=== PATIENT | female | born 1965 | race Caucasian/White ===

== ENCOUNTER 2018-12-28 09:28 | Outpatient (CLI) | payer OTHER ==
--- NOTE | 2018-12-28 11:34 | MMO ---
Bilateral MAMMO Bilat Screen DDI. CLINICAL HISTORY: Patient is 53 years old and is seen for screening. The patient has no family history of breast cancer. The patient has no personal history of cancer. The patient has a history of left needle biopsy in 2004 - benign. VIEWS: The views performed were: bilateral craniocaudal and bilateral mediolateral oblique. FILMS COMPARED: The present examination has been compared to prior imaging studies performed at [facility] on 12/11/2016, and at [facility] on 11/27/2014 and 09/30/2015. This study has been interpreted with the assistance of computer-aided detection. MAMMOGRAM FINDINGS: The breasts are heterogeneously dense, which could obscure a lesion on mammography. There are no suspicious masses, suspicious calcifications, or new areas of architectural distortion. IMPRESSION: THERE IS NO MAMMOGRAPHIC EVIDENCE OF MALIGNANCY. A ROUTINE FOLLOW-UP MAMMOGRAM IN 1 YEAR IS RECOMMENDED. ACR BI-RADS Category 1 - Negative MAMMOGRAPHY NOTE: 1. A negative mammogram report should not delay a biopsy if a dominant of clinically suspicious mass is present. 2. Approximately 10% to 15% of breast cancers are not detected by mammography. 3. Adenosis and dense breasts may obscure an underlying neoplasm. Reported by: JOSE J MURILLO MD Electonically Signed: [id number]
== END 2018-12-28 09:29 | disposition home or self-care (01) ==
LOC: SCSMAMMO 09:28
PROVIDERS: ATTEND Family Medicine
DX: Z12.31 Encounter for screening mammogram for malignant neoplasm of breast (principal)
CPT/HCPCS: 77067

== ENCOUNTER 2019-05-30 07:02 | Day surgery (SDC) | payer OTHER ==
--- NOTE | 2019-05-30 09:39 | OP ---
DATE OF PROCEDURE: 05/30/2019 ASSISTANT HOUSEKEEPING MANAGER SURGEON: None. PROCEDURES PERFORMED: 1. Esophagogastroduodenoscopy with biopsies. 2. Colonoscopy with biopsies. INDICATIONS: 1. Epigastric pain. 2. Chronic heartburn, fairly well controlled, on daily PPI. 3. Abnormal weight loss. 4. Chronic diarrhea. MEDICATIONS: See Anesthesia record. FINDINGS: After discussion of the risks, benefits, and alternatives of the procedure, informed consent was obtained and witnessed. Pre-endoscopic cardiopulmonary examination was satisfactory. Time-out was performed before sedation was achieved. Sedation was achieved with Anesthesia assistance in the endoscopy unit. A Pentax adult upper endoscope was placed into the oropharynx and passed through the cricopharyngeus under direct visualization. The esophageal mucosa appeared normal throughout with a normal-appearing Z-line. The endoscope was advanced into the stomach. Forward and retroflexed views of the entire gastric mucosa were obtained. The gastric mucosa appeared normal throughout. The endoscope was advanced through the pylorus and into the first and second portions of the duodenum, which also appeared normal. Biopsies were obtained from the second portion of the duodenum to rule out celiac disease. The upper endoscope was completely withdrawn, and the patient was repositioned. Digital rectal exam was performed, which was unremarkable. A Pentax adult colonoscope was inserted into the anus and passed forward to the cecum in the usual fashion. The cecal base was identified by the appendiceal orifice as well as the ileocecal valve. The terminal ileum was intubated, and the ileal mucosa appeared normal. The colonoscope was slowly withdrawn in a gradual circumferential manner with careful examination of the entire colonic mucosa. The quality of the prep was good. The colonic mucosa appeared normal throughout. There were no polyps or mass lesions identified. There were no mucosal abnormalities. I obtained biopsies randomly from the colonic mucosa in the right and left colon, to rule out microscopic colitis. Due to the patient's body habitus and narrow rectum, I did not retroflex in the rectum, but the rectum appeared normal on careful forward view. The endoscope was completely withdrawn, and the patient allowed to recover. The patient tolerated the procedure well. There were no immediate postprocedure complications. IMPRESSION: 1. Normal esophagogastroduodenoscopy, with duodenal biopsies obtained. 2. Normal colonoscopy to the terminal ileum, with random colon biopsies obtained. RECOMMENDATIONS: 1. Follow up pathology results on the duodenal and random colon biopsies. 2. If the biopsies are all normal, trial dicyclomine 10 mg t.i.d. p.r.n. for abdominal pain. 3. Follow up in the GI clinic in 2 months. 4. Repeat colonoscopy in 10 years for screening purposes. Job ID: [id number]
[2019-05-30] MEDS ORDERED: PROPOFOL 200 MG/20 ML VIAL ONE (10:38)
[2019-05-30] MEDS ORDERED: Lidocaine 1% PF 5 ML VIAL ONE (10:38)
== END 2019-05-30 10:00 | disposition home or self-care (01) ==
LOC: SDC 07:02
PROVIDERS: ATTEND Internal Medicine
PROC: 0DBE8ZX Excision of Large Intestine, Via Natural or Artificial Opening Endoscopic, Diagnostic (ICD-10-PCS; principal; 2019-05-30)
PROC: 0DB88ZX Excision of Small Intestine, Via Natural or Artificial Opening Endoscopic, Diagnostic (ICD-10-PCS; principal; 2019-05-30)
DX: K52.9 Noninfective gastroenteritis and colitis, unspecified (principal); R63.4 Abnormal weight loss; R10.13 Epigastric pain; Z79.899 Other long term (current) drug therapy
CPT/HCPCS: 88305; J2001; J2704